=== PATIENT | male | born 1945 | race Caucasian/White ===

== ENCOUNTER 2024-07-15 09:39 | Inpatient (IN) | payer OTHER ==
[2024-07-15 12:10] LABS: INR 1.08 (0.83-1.09); PROTHROMBIN TIME (PATIENT) 12.4 SEC (9.7-13.0)
[2024-07-15 12:13] LABS: ACTIVATED PTT 27.3 SECONDS (25.2-36.5)
[2024-07-15 12:18] LABS: BASO % 0.7 % (0-2.0); HEMATOCRIT 44.1 % (35.4-49); HEMOGLOBIN 14.6 GM/dL (11.7-16.9); LYMPH % 13.8 % (8-40); MCH 29.3 pg (25.7-33.7); MCHC 33.1 g/dl (32.0-35.9); MEAN CELL VOLUME 88.6 fl (80-96); MEAN PLT VOLUME 10.5 fl (7.5-11.1); MONO % 10.9 % (3.8-10.2); NEUT % 68.6 % (42.8-82.8); PLATELET COUNT 161 10^3/uL (134-434); RBC 4.98 M/mm3 (4.00-5.60); RDW 13.5 % (11.9-15.9); WHITE BLOOD COUNT 9.1 K/mm3 (4.0-10.0)
[2024-07-15 12:29] LABS: CALCIUM 8.8 mg/dL (8.5-10.1)
[2024-07-15 12:30] LABS: ALBUMIN 3.4 g/dl (3.4-5.0); BLOOD UREA NITROGEN 27.2 mg/dL (7-18)
[2024-07-15 12:33] LABS: CREATININE 0.7 mg/dL (0.55-1.3)
[2024-07-15 12:34] LABS: BILIRUBIN,TOTAL 1.2 mg/dL (0.2-1); TOT PROT 6.6 g/dl (6.4-8.2)
[2024-07-15] MEDS ORDERED: MORPHINE SULFATE 2 MG/ML SYRINGE ONE (17:03)
[2024-07-15] MEDS: morphine CARPU-JECT 2 MG/1 ML DISP.SYRIN IVPUSH ONE (18:01)
[2024-07-15] MEDS ORDERED: FAMOTIDINE 20 MG TABLET ONE (18:09)
[2024-07-15] MEDS ORDERED: MAG HYDROX/AL HYDROX/SIMETH 30 ML UNIT-DOSE CUP ONE ×2 (18:10→21:25)
[2024-07-15] MEDS: FAMOTIDINE 20 MG TABLET PO ONE (18:17)
[2024-07-15] MEDS: MAG HYDROX/AL HYDROX/SIMETH 30 ML UNIT-DOSE CUP PO ONE ×2 (18:17→21:31)
[2024-07-15] MEDS ORDERED: METOCLOPRAMIDE HCL INJECTION 10 MG/2 ML VIAL ONE (19:32)
[2024-07-15] MEDS: LACTATED RINGERS SOLUTION 1000 ML INFUS.BAG IV ONE (19:49)
[2024-07-15] MEDS: METOCLOPRAMIDE HCL INJECTION 10 MG/2 ML VIAL IVPUSH ONE (19:56)
[2024-07-15] MEDS ORDERED: ACETAMINOPHEN INJECTION 100 ML IVPB ONE (20:44)
[2024-07-15] MEDS: ACETAMINOPHEN 1000 MG/100 ML BAG IVPB ONE (20:59)
[2024-07-16 00:10] VITALS: BMI 30.7
[2024-07-16] MEDS ORDERED: ACETAMINOPHEN 1000 MG/100 ML BAG IVPB PRN ×2 (00:32→14:14)
[2024-07-16] MEDS: LACTATED RINGERS SOLUTION 1,000 ML/1,000 ML INFUS.BAG IV SCH (05:43)
[2024-07-16] MEDS: LEVOTHYROXINE NA 112 MCG TABLET (FP) PO SCH (06:19)
[2024-07-16 07:51] LABS: BASO % 0.6 % (0-2.0); EOS % 0.9 % (0-4.5); HEMATOCRIT 43.2 % (35.4-49); HEMOGLOBIN 14.2 GM/dL (11.7-16.9); LYMPH % 10.8 % (8-40); MCH 29.4 pg (25.7-33.7); MCHC 32.9 g/dl (32.0-35.9); MEAN CELL VOLUME 89.5 fl (80-96); MEAN PLT VOLUME 10.9 fl (7.5-11.1); MONO % 13.3 % (3.8-10.2); NEUT % 74.4 % (42.8-82.8); PLATELET COUNT 166 10^3/uL (134-434); RBC 4.83 M/mm3 (4.00-5.60); RDW 13.2 % (11.9-15.9); WHITE BLOOD COUNT 8.1 K/mm3 (4.0-10.0)
[2024-07-16 07:56] LABS: POTASSIUM 4.2 mmol/L (3.5-5.1)
[2024-07-16 07:59] LABS: CALCIUM 8.7 mg/dL (8.5-10.1)
[2024-07-16 08:00] LABS: ALBUMIN 3.3 g/dl (3.4-5.0); BLOOD UREA NITROGEN 21.7 mg/dL (7-18); MAGNESIUM 2.3 mg/dL (1.8-2.4)
[2024-07-16 08:02] LABS: CREATININE 0.6 mg/dL (0.55-1.3)
[2024-07-16 08:03] LABS: PHOSPHOROUS 3.7 mg/dL (2.5-4.9)
[2024-07-16 08:04] LABS: BILIRUBIN,TOTAL 1.2 mg/dL (0.2-1); TOT PROT 6.4 g/dl (6.4-8.2)
[2024-07-16] MEDS: amLODIPine BESYLATE 5 MG TABLET (FP) PO SCH (09:10)
[2024-07-16] MEDS: TAMSULOSIN HCL 0.4 MG CAP PO SCH (09:10)
[2024-07-16] MEDS: LISINOPRIL 10 MG TABLET PO SCH (09:10)
[2024-07-16] MEDS: BUDESONIDE/FORMOTEROL FUMARATE 160-4.5 MCG (10.3 GM INHALER) IH SCH (10:38)
[2024-07-16] MEDS: DEXTROSE 50%-WATER 25 GM/50 ML DISP.SYRIN IVPUSH ONE (17:15)
[2024-07-16] MEDS: POTASSIUM CHLORIDE 10 MEQ in DEXTROSE 5%-NORMAL SALINE 1,000 ML IVPB SCH (18:26)
[2024-07-16] MEDS: ROSUVASTATIN CA 20 MG TABLET PO SCH (22:18)
[2024-07-17 07:35] LABS: HEMATOCRIT 43.6 % (35.4-49); HEMOGLOBIN 14.2 GM/dL (11.7-16.9); MCH 29.5 pg (25.7-33.7); MCHC 32.5 g/dl (32.0-35.9); MEAN CELL VOLUME 90.5 fl (80-96); MEAN PLT VOLUME 10.4 fl (7.5-11.1); PLATELET COUNT 178 10^3/uL (134-434); RBC 4.82 M/mm3 (4.00-5.60); RDW 13.5 % (11.9-15.9); WHITE BLOOD COUNT 7.3 K/mm3 (4.0-10.0)
[2024-07-17 07:51] LABS: POTASSIUM 4.1 mmol/L (3.5-5.1)
[2024-07-17 07:53] LABS: BLOOD UREA NITROGEN 17.4 mg/dL (7-18); MAGNESIUM 2.3 mg/dL (1.8-2.4)
[2024-07-17 07:56] LABS: CREATININE 0.5 mg/dL (0.55-1.3)
[2024-07-17 07:57] LABS: PHOSPHOROUS 1.6 mg/dL (2.5-4.9)
[2024-07-17] MEDS: ENOXAPARIN NA (PORCINE) 40 MG/0.4 ML DISP.SYRIN SQ SCH (09:45)
[2024-07-17] MEDS: NAPH,MB-DB/K PH,MBDB POWDER PACKET PO ONE (10:37)
[2024-07-18 07:48] LABS: POTASSIUM 3.9 mmol/L (3.5-5.1)
[2024-07-18 07:52] LABS: BLOOD UREA NITROGEN 10.8 mg/dL (7-18); CALCIUM 8.1 mg/dL (8.5-10.1)
[2024-07-18 07:56] LABS: CREATININE 0.5 mg/dL (0.55-1.3)
[2024-07-18 08:24] LABS: HEMATOCRIT 38.9 % (35.4-49); HEMOGLOBIN 12.7 GM/dL (11.7-16.9); MCH 29.4 pg (25.7-33.7); MCHC 32.7 g/dl (32.0-35.9); MEAN PLT VOLUME 10.6 fl (7.5-11.1); PLATELET COUNT 165 10^3/uL (134-434); RBC 4.33 M/mm3 (4.00-5.60); RDW 13.3 % (11.9-15.9); WHITE BLOOD COUNT 7.1 K/mm3 (4.0-10.0)
[2024-07-19] MEDS ORDERED: BUPIVACAINE HCL/PF 0.25% (2.5MG/ML) 10 ML VIAL ONE (14:49)
[2024-07-19] MEDS ORDERED: ROCURONIUM BROMIDE 50 MG/5 ML SYRINGE ONE (15:33)
[2024-07-19] MEDS ORDERED: PROPOFOL 20 ML ONE ×2 (15:33→18:31)
[2024-07-19] MEDS ORDERED: SUCCINYLCHOLINE CHLORIDE 200 MG/10 ML SYRINGE ONE (15:33)
[2024-07-19] MEDS: ceFAZolin SODIUM 1 GM VIAL IVPB ONE (15:42)
[2024-07-19] MEDS: BUPIVACAINE HCL/PF 0.25% (2.5MG/ML) 10 ML VIAL IJ ONE (16:17)
[2024-07-19] MEDS ORDERED: ONDANSETRON 4 MG/2 ML VIAL IVPUSH PRN ×2 (19:18→19:49)
[2024-07-19] MEDS: LACTATED RINGERS SOLUTION 1,000 ML IV SCH (19:29)
[2024-07-19] MEDS ORDERED: oxyCODONE HCL 5 MG TABLET PO PRN (19:49)
[2024-07-19] MEDS: IBUPROFEN 600 MG TABLET (FP) PO SCH (20:20)
[2024-07-19] MEDS: ACETAMINOPHEN 650 MG/20.3 ML ORAL SOLUTION (CUPS) PO SCH (20:21)
[2024-07-19] MEDS: ROSUVASTATIN CA 20 MG TABLET PO SCH (21:44)
[2024-07-19] MEDS ORDERED: BUDESONIDE/FORMOTEROL FUMARATE 160-4.5 MCG (10.3 GM INHALER) IH SCH (22:00)
[2024-07-19] MEDS ORDERED: ROSUVASTATIN CA 20 MG TABLET PO SCH (22:00)
[2024-07-19] MEDS: BUDESONIDE/FORMOTEROL FUMARATE 160-4.5 MCG (10.3 GM INHALER) IH SCH (22:46)
[2024-07-20] MEDS: LEVOTHYROXINE NA 112 MCG TABLET (FP) PO SCH (06:24)
[2024-07-20 06:46] VITALS: RESP 18
[2024-07-20] MEDS ORDERED: LEVOTHYROXINE NA 112 MCG TABLET (FP) PO SCH (07:00)
[2024-07-20] MEDS: TAMSULOSIN HCL 0.4 MG CAP PO SCH (08:24)
[2024-07-20] MEDS ORDERED: TAMSULOSIN HCL 0.4 MG CAP PO SCH (08:30)
[2024-07-20 08:34] VITALS: PULSE 85; TEMP 98.2
[2024-07-20 08:51] LABS: HEMATOCRIT 40.4 % (35.4-49); HEMOGLOBIN 13.6 GM/dL (11.7-16.9); MCH 29.9 pg (25.7-33.7); MCHC 33.7 g/dl (32.0-35.9); MEAN CELL VOLUME 88.8 fl (80-96); MEAN PLT VOLUME 10.2 fl (7.5-11.1); PLATELET COUNT 214 10^3/uL (134-434); RBC 4.55 M/mm3 (4.00-5.60); RDW 13.7 % (11.9-15.9); WHITE BLOOD COUNT 10.9 K/mm3 (4.0-10.0)
[2024-07-20 09:16] LABS: POTASSIUM 4.4 mmol/L (3.5-5.1)
[2024-07-20 09:19] LABS: BLOOD UREA NITROGEN 7.8 mg/dL (7-18); CALCIUM 8.7 mg/dL (8.5-10.1); MAGNESIUM 2.1 mg/dL (1.8-2.4)
[2024-07-20 09:23] LABS: CREATININE 0.7 mg/dL (0.55-1.3)
[2024-07-20] MEDS: ENOXAPARIN NA (PORCINE) 40 MG/0.4 ML DISP.SYRIN SQ SCH (09:38)
[2024-07-20] MEDS: amLODIPine BESYLATE 5 MG TABLET (FP) PO SCH (09:38)
[2024-07-20] MEDS: LISINOPRIL 10 MG TABLET PO SCH (09:38)
[2024-07-20] MEDS ORDERED: LISINOPRIL 10 MG TABLET PO SCH (10:00)
[2024-07-20] MEDS ORDERED: amLODIPine BESYLATE 5 MG TABLET (FP) PO SCH (10:00)
[2024-07-20] MEDS ORDERED: ENOXAPARIN NA (PORCINE) 40 MG/0.4 ML DISP.SYRIN SQ SCH (10:00)
[2024-07-20 13:39] VITALS: BP 120/67
[2024-07-20] MEDS: FUROSEMIDE 40 MG/4 ML INJECTABLE VIAL IVPUSH ONE (16:07)
== END 2024-07-20 19:00 | disposition home or self-care (01) | DRG 354 ==
LOC: JER 09:39 → JERBED 20:51 → OBSVTOIN 20:51 → J6S 23:11 → J4W 07-16 03:46
PROVIDERS: ADMIT Internal Medicine; ATTEND Internal Medicine
PROC: 8E0W4CZ Robotic Assisted Procedure of Trunk Region, Percutaneous Endoscopic Approach (ICD-10-PCS; 2024-07-19)
PROC: 0WUF4JZ Supplement Abdominal Wall with Synthetic Substitute, Percutaneous Endoscopic Approach (ICD-10-PCS; principal; 2024-07-19 10:45)
DX: K42.0 Umbilical hernia with obstruction, without gangrene (principal); J90 Pleural effusion, not elsewhere classified; K56.600 Partial intestinal obstruction, unspecified as to cause; J98.11 Atelectasis; K43.6 Other and unspecified ventral hernia with obstruction, without gangrene; E78.5 Hyperlipidemia, unspecified; I10 Essential (primary) hypertension; Z85.46 Personal history of malignant neoplasm of prostate; R55 Syncope and collapse; E03.9 Hypothyroidism, unspecified
CPT/HCPCS: 36415; 71045-TC-FY; 74019-TC-FY; 74177-TC; 80048; 80053; 83605; 83690; 83735; 84100; 84484; 85025; 85027; 85610; 85730; 86850; 86900; 86901; 88302-TC; 93005; 93010; 94010; 94760; 99285-25; C1781; J0131; Q9967